=== PATIENT | female | born 1970 | race Caucasian/White ===

== ENCOUNTER → 2017-01-02 | Outpatient (CLI) | payer BC | END | disposition home or self-care (01) | LOC: LABWHC1 08:45 | PROVIDERS: ATTEND Internal Medicine Endocrinology, Diabetes & Metabolism | DX: E03.9 Hypothyroidism, unspecified (principal) | CPT/HCPCS: 36415; 84443 ==

== ENCOUNTER → 2017-07-05 | Outpatient (CLI) | payer BC | END | disposition home or self-care (01) | LOC: LABWHC1 09:04 | PROVIDERS: ATTEND Internal Medicine Endocrinology, Diabetes & Metabolism | DX: E03.8 Other specified hypothyroidism (principal) | CPT/HCPCS: 36415; 84443 ==

== ENCOUNTER → 2017-12-11 | Outpatient (CLI) | payer BC | END | disposition home or self-care (01) | LOC: LABWHC1 09:25 | PROVIDERS: ATTEND Internal Medicine Endocrinology, Diabetes & Metabolism | DX: E03.8 Other specified hypothyroidism (principal) | CPT/HCPCS: 36415; 84443 ==

== ENCOUNTER → 2018-08-20 | Outpatient (CLI) | payer BC | LOC: LABWHC1 09:30 | PROVIDERS: ATTEND Internal Medicine Endocrinology, Diabetes & Metabolism | DX: E03.8 Other specified hypothyroidism (principal) | CPT/HCPCS: 36415; 84443 ==

== ENCOUNTER → 2018-12-23 | Outpatient (CLI) | payer BC | END | disposition home or self-care (01) | LOC: LABWHC1 09:13 | PROVIDERS: ATTEND Internal Medicine Endocrinology, Diabetes & Metabolism | DX: E03.8 Other specified hypothyroidism (principal) | CPT/HCPCS: 36415; 84443 ==

== ENCOUNTER → 2019-03-28 | Outpatient (CLI) | payer BC | END | disposition home or self-care (01) | LOC: LABWHC1 08:12 | PROVIDERS: ATTEND Internal Medicine Endocrinology, Diabetes & Metabolism | DX: E03.8 Other specified hypothyroidism (principal) | CPT/HCPCS: 36415; 84443 ==

== ENCOUNTER → 2019-11-18 | Outpatient (CLI) | payer BC | END | disposition home or self-care (01) | LOC: LABWHC1 09:03 | PROVIDERS: ATTEND Internal Medicine Endocrinology, Diabetes & Metabolism | DX: E03.8 Other specified hypothyroidism (principal) | CPT/HCPCS: 36415; 84443 ==

== ENCOUNTER → 2020-03-10 | Outpatient (CLI) | payer BC | END | disposition home or self-care (01) | LOC: LABWHC1 08:24 | PROVIDERS: ATTEND Internal Medicine Endocrinology, Diabetes & Metabolism | DX: E03.8 Other specified hypothyroidism (principal) | CPT/HCPCS: 36415; 84443 ==

== ENCOUNTER → 2020-09-22 | Outpatient (CLI) | payer BC | END | disposition home or self-care (01) | LOC: LABWHC1 08:42 | PROVIDERS: ATTEND Internal Medicine Endocrinology, Diabetes & Metabolism | DX: E03.8 Other specified hypothyroidism (principal) | CPT/HCPCS: 36415; 84443 ==

== ENCOUNTER → 2021-03-16 | Outpatient (CLI) | payer BC | END | disposition home or self-care (01) | LOC: LABWHC1 09:00 | PROVIDERS: ATTEND Internal Medicine Endocrinology, Diabetes & Metabolism | DX: E03.8 Other specified hypothyroidism (principal) | CPT/HCPCS: 36415; 84443 ==

== ENCOUNTER → 2021-09-27 | Outpatient (CLI) | payer BC | END | disposition home or self-care (01) | LOC: LABWHC1 09:12 | PROVIDERS: ATTEND Internal Medicine Endocrinology, Diabetes & Metabolism | DX: E03.8 Other specified hypothyroidism (principal) | CPT/HCPCS: 36415; 84443 ==

== ENCOUNTER → 2022-07-25 | Outpatient (CLI) | payer BC | END | disposition home or self-care (01) | LOC: LABWHC1 09:10 | PROVIDERS: ATTEND Internal Medicine Endocrinology, Diabetes & Metabolism | DX: E03.8 Other specified hypothyroidism (principal) | CPT/HCPCS: 36415; 84443 ==

== ENCOUNTER → 2023-07-11 | Outpatient (CLI) | payer BC | END | disposition home or self-care (01) | LOC: LABWHC1 08:38 | PROVIDERS: ATTEND Internal Medicine Endocrinology, Diabetes & Metabolism | DX: E03.8 Other specified hypothyroidism (principal) | CPT/HCPCS: 36415; 84443 ==

== ENCOUNTER → 2023-12-12 | Outpatient (CLI) | payer BC | END | disposition home or self-care (01) | LOC: LABWHC1 08:49 | PROVIDERS: ATTEND Internal Medicine Endocrinology, Diabetes & Metabolism | DX: E03.8 Other specified hypothyroidism (principal) | CPT/HCPCS: 36415; 84443 ==

== ENCOUNTER → 2024-09-26 | Outpatient (CLI) | payer BC ==
[2024-09-26 16:05] LABS: ALT 28 U/L (8-44); AST 18 U/L (13-35); Albumin 4.5 g/dL (3.8-4.9); Alkaline Phosphatase 83 U/L (41-126); BUN/Creat Ratio 14.62 Ratio (12.00-20.00); Blood Urea Nitrogen 11.7 mg/dL (9.0-27.0); Calcium 9.8 mg/dL (8.7-10.3); Carbon Dioxide 22.4 mmol/L (21.6-31.8); Chloride 105 mmol/L (96-109); Glucose 110 mg/dL (70-110); Potassium 4.9 mmol/L (3.5-5.5); Sodium 141 mmol/L (135-145); Total Bilirubin 0.6 mg/dL (0.3-1.2); Total Protein 7.5 g/dL (6.2-8.2)
[2024-09-27 19:06] LABS: T4, Free (Free Thyroxine) 1.76 ng/dL (0.80-1.80)
== END | disposition home or self-care (01) ==
LOC: LABWHC1 08:54
PROVIDERS: ATTEND Internal Medicine
DX: E55.9 Vitamin D deficiency, unspecified (principal); E03.9 Hypothyroidism, unspecified
CPT/HCPCS: 36415; 80053; 82306; 84439; 84443